=== PATIENT | male | born 1965 | race Caucasian/White ===

== ENCOUNTER 2017-06-15 12:00 | Inpatient (IN) | payer BC, OTHER ==
[~2017-06-15] VITALS: Ht 177.8 cm; Wt 97.6 kg
[~2017-06-15 12:00] MED LIST: ASPI325T17 PO; ATOR20TA PO; BACITRACIN 50,000 UNIT ONE; BUPIVACAINE/PF 0.5% ONE; EPINEPHRINE 1 MG/ML, 1ML ONE; LISI2.5T PO; METO25TA35 PO; THROMBIN 5,000 UNIT VIAL TP ONE
[2017-06-15] MEDS ORDERED: LACTATED RINGERS 1,000 ML IV SCH (12:44)
[2017-06-15] MEDS ORDERED: KETAMINE 10 MG/ML, 20ML ONE (12:52)
[2017-06-15] MEDS ORDERED: FENTANYL PF 250 MCG/5ML ONE (12:52)
[2017-06-15] MEDS ORDERED: PROPOFOL 50 ML ONE ×2 (12:52→15:13)
[2017-06-15] MEDS ORDERED: MIDAZOLAM 1 MG/ML, 2ML ONE (12:52)
[2017-06-15] MEDS ORDERED: PROPOFOL 10 MG/ML, 20ML ONE (12:53)
[2017-06-15] MEDS ORDERED: CEFAZOLIN 1,000 MG ONE (12:53)
[2017-06-15] MEDS ORDERED: DEXAMETHASONE 4 MG/ML, 1ML ONE (12:53)
[2017-06-15] MEDS ORDERED: ONDANSETRON 2MG/ML, 2ML ONE (12:53)
[2017-06-15] MEDS ORDERED: LIDOCAINE GEL 2%, 5ML ONE (12:54)
[2017-06-15 13:11] VITALS: BP 124/80
[2017-06-15] MEDS ORDERED: METO25TA91 PO (13:29)
[2017-06-15] MEDS ORDERED: METOPROLOL SUCCINATE 25 MG TAB.ER.24H PO ONE (13:30)
[2017-06-15] MEDS ORDERED: EPHEDRINE 50 MG/ML, 1ML ONE (14:17)
[2017-06-15] MEDS ORDERED: SUCCINYLCHOLINE 20 MG/ML, 10ML ONE (14:17)
[2017-06-15] MEDS ORDERED: PROMETHAZINE 25 MG/ML, 1ML IV PRN (15:30)
[2017-06-15] MEDS ORDERED: OXYcodone 5 MG/5 ML ORAL.SOL UDC PO PRN (15:30)
[2017-06-15] MEDS ORDERED: hydrALAzine 20 MG/ML, 1ML IV PRN (15:30)
[2017-06-15] MEDS ORDERED: LABETALOL 5MG/ML, 20ML IV PRN (15:30)
[2017-06-15] MEDS ORDERED: MEPERIDINE/PF 25MG/0.5ML IVPush PRN (15:30)
[2017-06-15] MEDS ORDERED: ACETAMINOPHEN 325 MG TABLET PO PRN (15:30)
[2017-06-15] MEDS ORDERED: LORazepam 2 MG/ML, 1ML IVPush PRN (15:30)
[2017-06-15] MEDS ORDERED: MIDAZOLAM 1 MG/ML, 2ML IV PRN (15:30)
[2017-06-15] MEDS ORDERED: DIAZEPAM 5 MG/ML, 2ML IVPush PRN (15:30)
[2017-06-15] MEDS ORDERED: ONDANSETRON 2MG/ML, 2ML IVPush PRN (15:30)
[2017-06-15] MEDS ORDERED: ALBUTEROL/IPRATROPIUM 2.5MG/0.5MG, 3 ML NPPB PRN (15:30)
[2017-06-15] MEDS: FENTANYL PF 100 MCG/2ML IV PRN ×2 (16:20→16:35)
[2017-06-15] MEDS ORDERED: FENTANYL PF 100 MCG/2ML ONE (16:20)
[2017-06-15] MEDS ORDERED: HYDROmorphone 2 MG/ML, 1ML ONE (16:20)
[2017-06-15] MEDS: HYDROmorphone 1 MG/ML, 1ML IV PRN ×4 (16:25→17:20)
[2017-06-15] MEDS ORDERED: HYDROmorphone PCA 30 MG/30 ML ONE (16:43)
[2017-06-15] MEDS ORDERED: HYDROmorphone PCA 30 MG/30 ML IV PRN ×3 (17:30→18:30)
[2017-06-15] MEDS ORDERED: ONDANSETRON 2MG/ML, 2ML IV PRN (18:30)
[2017-06-15] MEDS ORDERED: DIPHENHYDRAMINE 50 MG/ML, 1ML IVPush PRN (18:30)
[2017-06-15] MEDS ORDERED: BISACODYL 10 MG SUPP PR PRN (18:30)
[2017-06-15] MEDS ORDERED: morphine SULFATE 10 MG/ML, 1ML IV PRN (18:30)
[2017-06-15] MEDS ORDERED: MAGNESIUM HYDROXIDE 8%, 30ML UDC PO PRN (18:30)
[2017-06-15] MEDS ORDERED: DIPHENHYDRAMINE 25 MG CAPSULE PO PRN (18:30)
[2017-06-15] MEDS ORDERED: ATORVASTATIN 20 MG TABLET PO SCH (21:00)
[2017-06-15] MEDS: CEFAZOLIN PMX 1GM/50ML 50 ML IVPB SCH (21:54)
[2017-06-15] MEDS: NS + 20MEQ KCL 1,000 ML IV SCH (21:54)
[2017-06-15] MEDS: OXYcodone/APAP 5/325MG TABLET PO PRN (21:55)
[2017-06-15] MEDS: TIZANIDINE 4MG TABLET PO SCH (21:55)
[2017-06-16 00:20] VITALS: BP 128/75
[2017-06-16] MEDS: OXYcodone/APAP 5/325MG TABLET PO PRN ×2 (03:02→08:54)
[2017-06-16 04:09] VITALS: BP 107/66
[2017-06-16] MEDS: TIZANIDINE 4MG TABLET PO SCH (05:25)
[2017-06-16] MEDS: CEFAZOLIN PMX 1GM/50ML 50 ML IVPB SCH (05:25)
[2017-06-16] MEDS ORDERED: METOPROLOL SUCCINATE 25 MG TAB.ER.24H PO SCH (06:00)
[2017-06-16 07:39] VITALS: BP 130/85
[2017-06-16] MEDS: NS + 20MEQ KCL 1,000 ML IV SCH (08:00)
[2017-06-16] MEDS ORDERED: TIZA4TAB9 PO (08:48)
[2017-06-16] MEDS ORDERED: OXYC-302 PO (08:49)
[2017-06-16] MEDS ORDERED: LISINOPRIL 5 MG TABLET PO SCH (09:00)
[2017-06-16] MEDS ORDERED: SENNA/DOCUSATE TABLET PO SCH (09:00)
== END 2017-06-16 11:13 | disposition home or self-care (01) | DRG 473 ==
LOC: OUT 12:00 → 4NOR 17:57 → OUT 17:59
PROVIDERS: ADMIT Neurological Surgery; ATTEND Neurological Surgery
PROC: 0RB30ZZ Excision of Cervical Vertebral Disc, Open Approach (ICD-10-PCS; 2017-06-15)
PROC: 01N10ZZ Release Cervical Nerve, Open Approach (ICD-10-PCS; 2017-06-15)
PROC: 4A11X4G Monitoring of Peripheral Nervous Electrical Activity, Intraoperative, External Approach (ICD-10-PCS; 2017-06-15)
PROC: 0RG20A0 Fusion of 2 or more Cervical Vertebral Joints with Interbody Fusion Device, Anterior Approach, Anterior Column, Open Approach (ICD-10-PCS; principal; 2017-06-15 16:30)
DX: M50.122 Cervical disc disorder at C5-C6 level with radiculopathy (principal); M48.02 Spinal stenosis, cervical region; M43.5X2 Other recurrent vertebral dislocation, cervical region; M40.202 Unspecified kyphosis, cervical region; I25.2 Old myocardial infarction; Z82.3 Family history of stroke; Z80.9 Family history of malignant neoplasm, unspecified; Z82.49 Family history of ischemic heart disease and other diseases of the circulatory system
CPT/HCPCS: 72040; 95938; 95941; C1713; J0171; J0690; J1100; J1170; J2250; J2405; J2704; J3010; J3480; J3490; J0330; J7120

== ENCOUNTER 2018-07-29 10:49 | Day surgery (SDC) | payer BC, OTHER ==
[~2018-07-29] VITALS: Ht 177.8 cm; Wt 92.1 kg
[~2018-07-29 10:49] MED LIST changes: -BACITRACIN 50,000 UNIT ONE; -BUPIVACAINE/PF 0.5% ONE; -EPINEPHRINE 1 MG/ML, 1ML ONE; +METO25TA91 PO; +OXYC-302 PO; -THROMBIN 5,000 UNIT VIAL TP ONE; +TIZA4TAB9 PO
[2018-07-29] MEDS ORDERED: SODIUM CHLORIDE 0.9% 1,000 ML IV SCH (11:12)
[2018-07-29 11:16] VITALS: BP 117/73
[2018-07-29] MEDS ORDERED: LIDOCAINE 2%, 20ML ONE (11:22)
[2018-07-29] MEDS ORDERED: PLEASE ENTER HEIGHT AND WEIGHT MC SCH (11:30)
== END 2018-07-29 12:13 | disposition home or self-care (01) ==
LOC: CACL 10:49
PROVIDERS: ATTEND Internal Medicine Cardiovascular Disease
DX: Z45.09 Encounter for adjustment and management of other cardiac device (principal); F17.210 Nicotine dependence, cigarettes, uncomplicated; I48.91 Unspecified atrial fibrillation; I10 Essential (primary) hypertension; E78.2 Mixed hyperlipidemia; I25.10 Atherosclerotic heart disease of native coronary artery without angina pectoris
CPT/HCPCS: 33286; C1764; J3490

== ENCOUNTER → 2018-07-31 | Outpatient (CLI) | payer BC, OTHER | END | disposition home or self-care (01) | LOC: CFH 09:30 | PROVIDERS: ATTEND Physician Assistant Medical | DX: I25.10 Atherosclerotic heart disease of native coronary artery without angina pectoris (principal); I10 Essential (primary) hypertension; E78.5 Hyperlipidemia, unspecified; I25.2 Old myocardial infarction | CPT/HCPCS: 93306 ==

== ENCOUNTER → 2018-08-22 | Outpatient (CLI) | payer BC, OTHER ==
[~2018-08-22] MED LIST changes: +REGADENOSON 0.4 MG/5 ML SYRINGE ONE
== END | disposition home or self-care (01) ==
LOC: CFH 07:43
PROVIDERS: ATTEND Physician Assistant Medical
DX: I25.10 Atherosclerotic heart disease of native coronary artery without angina pectoris (principal); I48.91 Unspecified atrial fibrillation; R55 Syncope and collapse
CPT/HCPCS: 78452; 93017; A9502; J2785